=== PATIENT | female | born 1975 | race Caucasian/White ===

== ENCOUNTER 2025-05-09 19:05 | Emergency (ER) | payer BC ==
[~2025-05-09] VITALS: Ht 165.1 cm; Wt 87.0 kg
[2025-05-09 19:23] VITALS: O2SAT 98
[2025-05-09 20:10] LABS: BASOPHILS % 0.4 % (0.0-2.0); EOSINOPHILS % 0.7 % (0.0-5.0); HEMATOCRIT. 40.4 % (36.0-48.0); HEMOGLOBIN. 13.2 g/dL (12.0-16.0); LYMPHOCYTES % 29.1 % (20.0-50.0); MEAN PLATELET VOLUME 8.3 fl (7.4-10.4); MONOCYTES % 5.8 % (2.0-8.0); NEUTROPHILS % 64.0 % (40.0-76.0); PLATELET 255 x1000/uL (130-400); RED BLOOD CELL COUNT 4.36 mill/uL (4.2-5.4); RED CELL DISTRIBUTION WIDTH 13.9 % (11.6-14.6)
[2025-05-09 20:11] LABS: COLOR URINE YELLOW (YELLOW); GLUCOSE URINE NEGATIVE (NEGATIVE); KETONES URINE NEGATIVE (NEGATIVE); LEUKOCYTE ESTERASE URINE 1+ (NEGATIVE); NITRITE URINE NEGATIVE (NEGATIVE); OCCULT BLOOD URINE TRACE (NEGATIVE); PH URINE 5.5 (4.5-8.0); PROTEIN URINE TRACE (NEGATIVE); SPECIFIC GRAVITY URINE 1.022 (1.005-1.030); UROBILINOGEN URINE 0.2 E.U./dL (0.2-1.0)
[2025-05-09 20:21] LABS: CREATININE 0.7 mg/dL (0.6-1.0)
[2025-05-09 20:22] LABS: PROTEIN TOTAL 7.3 g/dL (6.0-8.3); UREA NITROGEN BLOOD 7 mg/dL (9-23)
[2025-05-09 20:23] LABS: ASPARTATE AMINOTRANSFERASE 25 IU/L (<34)
[2025-05-09 20:24] LABS: BILIRUBIN DIRECT 0.1 mg/dL (<=3.0); BILIRUBIN TOTAL 0.5 mg/dL (0.1-1.0)
[2025-05-09 20:25] LABS: HCG SCREEN NEGATIVE
[2025-05-09 20:31] LABS: CLARITY URINE SL HAZY (CLEAR)
[2025-05-09 20:32] LABS: WBC URINE 0-2 /hpf (0-2)
[2025-05-09 20:33] LABS: BACTERIA URINE TRACE; MUCUS URINE 1+ /lpf (< = 2+); RBC URINE 0-2 /hpf (0-2); SQUAMOUS EPITHELIAL CELL URINE 1+ /lpf (RARE/1+)
[2025-05-09] MEDS: KETOROLAC 30MG/ML VIAL IV ONE (22:11)
[2025-05-09] MEDS ORDERED: IBUP-2030 MT (23:20)
[2025-05-09 23:25] VITALS: BP 126/76; PULSE 73; RESP 16; TEMP 36.9; O2SAT 99
[2025-05-09] MEDS ORDERED: IOHEXOL-300 100 ML BOTTLE ONE (23:44)
== END 2025-05-09 23:30 | disposition home or self-care (01) ==
LOC: ER 19:05
DX: K43.9 Ventral hernia without obstruction or gangrene (principal); Z98.890 Other specified postprocedural states
CPT/HCPCS: 99285; 74177; 96374; 80076; 80048; 81003; 84703; 83690; 85025; 36415; J1885; Q9967